=== PATIENT | female | born 1985 | race Hispanic/Latino ===

== ENCOUNTER → 2024-07-04 | Outpatient (CLI) | payer BC ==
[~2024-07-04] MED LIST: IOHEXOL-350 75 ML VIAL IV ONE
--- NOTE | 2024-07-04 10:46 | HMCIMG ---
CT ABDOMEN W/CONTRAST REASON: Lower abdominal pain, unspecified COMPARISON: None. TECHNIQUE: Images are obtained from lung bases through the iliac crests following IV contrast, 50 cc Omnipaque 350. Oral contrast was performed as well. FINDINGS: Lung bases are clear. There are no focal liver lesions. There are normal-appearing kidneys.. Spleen and pancreas appear unremarkable. The gallbladder appears normal as well. Visualized small bowel loops appear unremarkable. There is diffuse moderate to marked wall thickening in the cecum and a portion of the a sending colon. These findings are nonspecific but may represent Crohn's disease. The transverse colon has some wall thickening but less pronounced. The splenic flexure and the descending colon appear normal. The rectosigmoid colon was not included on the CT abdomen only exam. The appendix was not separately identified. There is no evidence of free fluid or intraperitoneal air. There are no focal fluid collections. Aorta and retroperitoneum appear normal. The anterior abdominal wall is intact. Osseous structures appear unremarkable. IMPRESSION: 1. Moderate to marked wall thickening in the cecum and descending colon, nonspecific but this could represent Crohn's disease in the appropriate clinical setting. 2. No evidence of abscess or obstruction. 3. There is mild wall thickening in the transverse colon as well. 4. Otherwise unremarkable findings in this CT abdomen exam. CT was performed with one or more following dose reduction techniques: automated exposure control, adjustment of the mA and kv according to patient's size, or use of a iterative reconstruction technique.
== END | disposition home or self-care (01) ==
LOC: RAH 08:19
PROVIDERS: ATTEND Internal Medicine
DX: K50.812 Crohn's disease of both small and large intestine with intestinal obstruction (principal); K63.89 Other specified diseases of intestine; R10.30 Lower abdominal pain, unspecified
CPT/HCPCS: 74160; Q9967